=== PATIENT | male | born 1945 | race Caucasian/White ===

== ENCOUNTER → 2016-07-17 | Outpatient (CLI) | payer BC ==
[~2016-07-17] MED LIST: CLARITIN 10MG T10 MG PO; METOPROLOL SUC100 MG PO; PRAVACHOL20 MG PO; SARAFEM10 MG PO
== END ==
LOC: KOH-I 13:27
DX: J20.8 Acute bronchitis due to other specified organisms (principal); J90 Pleural effusion, not elsewhere classified
CPT/HCPCS: 71020

== ENCOUNTER → 2016-07-26 | Outpatient (CLI) | payer BC | LOC: KOH-I 10:04 | DX: J20.8 Acute bronchitis due to other specified organisms (principal); J98.11 Atelectasis | CPT/HCPCS: 71020 ==

== ENCOUNTER → 2021-05-20 | Outpatient (CLI) | payer MEDICARE | LOC: CT 13:34 | DX: H93.13 Tinnitus, bilateral (principal); R42 Dizziness and giddiness | CPT/HCPCS: 36415; 70482; 82565; 84520; Q9967 ==